=== PATIENT | male | born 1970 | race Caucasian/White ===

== ENCOUNTER → 2024-04-02 | Outpatient (CLI) | payer BC, OTHER, SELFPAY ==
[2024-04-04 13:07] LABS: PSA, Free 1.09 ng/mL
== END | disposition home or self-care (01) ==
LOC: LAB 16:00
PROVIDERS: PCP Family Medicine; Referring Provider Urology; Visit Provider Urology
DX: R97.20 Elevated prostate specific antigen [PSA] (principal)
CPT/HCPCS: 36415; 84153; 84154